=== PATIENT | male | born 2000 | race Hispanic/Latino ===

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

== ENCOUNTER 2022-07-26 08:09 | Emergency (ER) | payer MEDICAID ==
[~2022-07-26] VITALS: Ht 165.1 cm; Wt 65.8 kg
[~2022-07-26 08:09] MED LIST: PROM25TA7 PO
[2022-07-26 08:16] VITALS: BP 127/67
[2022-07-26] MEDS ORDERED: HYDROXYZINE 25 MG TABLET PO SCH (08:30)
[2022-07-26 08:57] LABS: AMPHET/METH SCREEN,URINE NEGATIVE (NEGATIVE); BARBITURATE SCREEN, URINE NEGATIVE (NEGATIVE); BENZODIAZEPINES SCREEN,URINE NEGATIVE (NEGATIVE); CANNABINOID SCREEN,URINE POSITIVE (NEGATIVE); COCAINE SCREEN,URINE NEGATIVE (NEGATIVE); OPIATE SCREEN,URINE NEGATIVE (NEGATIVE); PHENCYCLIDINE SCREEN,URINE NEGATIVE (NEGATIVE)
[2022-07-26] MEDS ORDERED: HYDR25CA PO (09:11)
== END 2022-07-26 09:24 | disposition home or self-care (01) ==
LOC: EDH 08:09
DX: F41.9 Anxiety disorder, unspecified (principal); F12.10 Cannabis abuse, uncomplicated; F41.0 Panic disorder [episodic paroxysmal anxiety]
CPT/HCPCS: 80305